=== PATIENT | male | born 1995 | race American Indian/Alaskan Native ===

== ENCOUNTER 2021-07-03 21:30 | Emergency (ER) | payer SELFPAY ==
[2021-07-03 23:44] VITALS: BP 139/95
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
== END 2021-07-04 00:19 | disposition home or self-care (01) ==
LOC: ED 21:30
DX: F31.9 Bipolar disorder, unspecified (principal); F20.9 Schizophrenia, unspecified; F17.200 Nicotine dependence, unspecified, uncomplicated; F15.90 Other stimulant use, unspecified, uncomplicated; Z98.890 Other specified postprocedural states
CPT/HCPCS: 99281

== ENCOUNTER 2021-08-24 23:47 | Emergency (ER) | payer BC ==
[2021-08-25] MEDS ORDERED: OLANzapine ZYDIS 5 MG TAB PO ONE (00:01)
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
[2021-08-25] MEDS ORDERED: ZIPRASIDONE MESYLATE 20 MG VIAL IM ONE ×2 (00:20→00:21)
[2021-08-25] MEDS ORDERED: WATER FOR INJ Sterile (PF) 10 ML ONE (00:22)
[2021-08-25 01:16] LABS: Hematocrit 43.4 % (35.5-45.6); Hemoglobin 14.8 gm/dl (11.8-15.2); Mean Corpuscular HGB Conc 34 % (32-34); Mean Corpuscular Volume 96 fl (84-94); Platelet Count 243 K/mm3 (140-440); Red Blood Count 4.52 M/mm3 (3.65-5.03); Red Cell Distribution Width 12.7 % (13.2-15.2)
[2021-08-25 01:23] LABS: BUN/Creatinine Ratio 10; Blood Urea Nitrogen 12 mg/dL (9-20); Calcium 9.6 mg/dL (8.4-10.2); Hemolysis Index 9
--- NOTE | 2021-08-25 10:27 | Progress Note ---
Subjective - Reason for Consult Consult date: 08/25/21 Reason for consult: bizarre behavior - Chief Complaint Chief complaint: The patient was seen today. He is a 25y/o male brought in for bizarre behavior. During my evaluation of the patient he is calm, cooperative and polite. He says his dad brought him but states he forgot why. I ask him was he making threats to others or himself, he replies "no, no ma'am nothing like that." He currently denies both SI/HI. I then ask him was he hearing or seeing things. He says "yes, hearing voices." He denies them at present. The patient also denies any illicit drug use, alcohol or nicotine. The patient says he has been off his meds for a few months. He says he takes seroquel for bipolar PAST PSYCHIATRIC HISTORY: Diagnoses: Bipolar Suicide attempts or Self-harm behavior: Denies Prior psychiatric hospitalizations: Denies Substance Abuse history: denies Previous psychiatric medications tried: seroquel Outpatient treatment: not recently PAST MEDICAL HISTORY: None reported or document Family Psychiatric History: None reported or documented SOCIAL HISTORY Marital Status: single Living Arrangements: Lives with dad Employment Status: unemployed Access to guns/weapons: Denies Education: high school History of Abuse: Denies Legal History: Denies REVIEW OF SYSTEMS Constitutional: Negative for weight loss ENT: Negative for stridor Respiratory: Negative for cough or hemoptysis All other systems reviewed and are negative MENTAL STATUS EXAMINATION General Appearance and Behavior: Age appropriate, good hygiene, wearing appropriate clothes. calm, cooperative and polite Cooperation: cooperative Psychomotor Behavior: Psychomotor normal Mood: okay Affect and affective range: congruent with stated mood Thought Process: impaired Thought Content: None Speech: Normal volume, Regular rate and rhythm, Suicidal Ideation: Denies Homicidal Ideation: Denies Hallucinations: Denies Delusions: None elicited Impulse Control: Limited Insight and Judgment: Limited Memory: limited Attention: Attentive Orientation: alert and oriented Assessment and Plan (1)Hx of Bipolar Treatment Plan Seroquel 100mg po BID Sitter: per primary Medical: per primary Disposition: Do not recommend acute psychiatric inpatient treatment. The patient understands that if SI/HI arise or any fear of endangerment he is to seek immediate assistance. Will sign off. Thanks [facility] staffed with Dr. Ch Mental Status Exam - Vital signs Last Vital Signs Temp 98.7 F 08/25/21 00:09 Pulse 99 H 08/25/21 00:09 Resp 19 08/25/21 00:09 BP 150/100 08/25/21 00:09 Pulse Ox 97 08/25/21 00:09
--- NOTE | 2021-08-25 10:33 | Event Note ---
Date: 08/25/21 Patient now is alert, oriented x3 no acute distress. Patient stated that he does not remember what happened last night but he admitted that he has been using some drugs. Patient denied any suicidal homicidal ideation. Patient also denied any auditory or visual hallucination. Patient is medically and psychiatrically stable for discharge.
[2021-08-25 10:58] VITALS: BP 119/79
== END 2021-08-25 10:56 | disposition home or self-care (01) ==
LOC: ED 23:47
DX: F19.950 Other psychoactive substance use, unspecified with psychoactive substance-induced psychotic disorder with delusions (principal); F17.200 Nicotine dependence, unspecified, uncomplicated; F31.9 Bipolar disorder, unspecified; F20.9 Schizophrenia, unspecified
CPT/HCPCS: 36415; 80048; 84443; 85027; 96372; 99284; J3486; 80320; G0480

== ENCOUNTER 2022-02-05 03:29 | Emergency (ER) | payer SELFPAY ==
[2022-02-05 04:25] VITALS: BP 152/95
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
== END 2022-02-05 10:08 | disposition home or self-care (01) ==
LOC: ED 03:29
DX: N34.2 Other urethritis (principal); F17.200 Nicotine dependence, unspecified, uncomplicated
CPT/HCPCS: 99282